=== PATIENT | male | born 1975 | race Asian ===

== ENCOUNTER 2023-11-21 18:37 | Emergency (ER) | payer MEDICAID ==
[~2023-11-21] VITALS: Ht 172.7 cm; Wt 81.0 kg
[2023-11-21 18:48] VITALS: O2SAT 100
[2023-11-21] MEDS ORDERED: TOPUD MT (20:30)
[2023-11-21] MEDS ORDERED: NAPR375T5 MT (20:30)
[2023-11-21] MEDS ORDERED: AMOX1TAB16 MT (20:30)
[2023-11-21 20:42] VITALS: BP 109/73; PULSE 82; RESP 20; TEMP 36.83628; O2SAT 100
== END 2023-11-21 20:44 | disposition home or self-care (01) ==
LOC: ER 18:37
DX: K04.7 Periapical abscess without sinus (principal)
CPT/HCPCS: 99281